=== PATIENT | female | born 1935 | race Two or more races ===

== ENCOUNTER 2018-07-11 11:45 | Emergency (ER) | payer MEDICARE, MEDICAID ==
[~2018-07-11] VITALS: Ht 154.9 cm; Wt 43.1 kg
--- NOTE | 2018-07-11 11:50 | NUR ---
PT FOUND ON THE FLOOR WITH HEMATOMA ON BACK OF THE HEAD. PATIENT A/OX3, NO DISTRESS NOTED. REFUSED TREATMENT AT FIRST, BUT AFTER SOME ENCOURAGEMENT PATIENT DECIDED TO AGREE WITH MEDICAL TREATMENT.
[2018-07-11 12:30] LABS: BASOPHILS % (AUTO) 0.4 % (0.0-2.0); EOSINOPHILS % (AUTO) 0.2 % (0.0-6.0); HEMATOCRIT 43 % (33-45); HEMOGLOBIN 14.3 g/dL (11.5-14.8); LYMPHOCYTES # (AUTO) 1.5 /CMM (0.8-4.8); LYMPHOCYTES % (AUTO) 17.6 % (20.0-44.0); MEAN CORPUSCULAR HGB CONC 34 g/dl (31.0-36.0); MEAN CORPUSCULAR VOLUME 91 fL (82-100); MONOCYTES # (AUTO) 0.5 /CMM (0.1-1.30); MONOCYTES % (AUTO) 6.4 % (2.0-12.0); NEUTROPHILS # (AUTO) 6.4 /CMM (1.8-8.9); NEUTROPHILS % (AUTO) 75.4 % (43.0-81.0); PLATELET COUNT (AUTO) 246 /CMM (150-450); RED BLOOD CELL COUNT(AUTO) 4.66 MIL/uL (4.0-5.2); WHITE BLOOD COUNT (AUTO) 8.4 K/uL (4.3-11.0)
[2018-07-11] MEDS ORDERED: IV NS 0.9% 1,000 ML BAG IV ONE (12:30)
[2018-07-11 12:42] LABS: CALCIUM, SERUM 8.4 mg/dL (8.5-10.1); CARBON DIOXIDE 26 mmol/L (21-32); CHLORIDE 100 mmol/L (98-107); CREATININE 0.9 mg/dL (0.6-1.3); GLUCOSE 108 mg/dL (74-106); POTASSIUM 3.7 mmol/L (3.5-5.1); SODIUM SERUM 134 mmol/L (136-145); UREA NITROGEN, BLOOD 21 mg/dL (7-18)
[2018-07-11 12:48] LABS: ALANINE AMINOTRANSFERASE 17 U/L (12-78); ALBUMIN 3.1 g/dL (3.4-5.0); ALKALINE PHOSPHATASE 108 U/L (46-116); ASPARTATE AMINOTRANSFERASE 20 U/L (15-37); BILIRUBIN,DIRECT 0.2 mg/dL (0.0-0.2); BILIRUBIN,TOTAL 0.9 mg/dL (0.2-1.0); TOTAL PROTEIN, SERUM 6.4 g/dL (6.4-8.2)
--- NOTE | 2018-07-11 14:32 | NUR ---
PIV removed, Patient discharged to home in stable condition, accompanied by daughter. Written and verbal after care instructions given. Patient verbalizes understanding of instruction.
[2018-07-11 14:33] VITALS: BP 162/94
== END 2018-07-11 14:35 | disposition home or self-care (01) ==
LOC: ER 11:47
DX: S20.212A Contusion of left front wall of thorax, initial encounter (principal); S00.03XA Contusion of scalp, initial encounter; S09.8XXA Other specified injuries of head, initial encounter; R55 Syncope and collapse; E86.0 Dehydration; W18.39XA Other fall on same level, initial encounter; Y93.89 Activity, other specified; Y92.89 Other specified places as the place of occurrence of the external cause; Y99.8 Other external cause status
CPT/HCPCS: 36415; 70450; 71100; 72125; 80048; 80076; 82962; 84484; 85025; 93005; 96360; 99284; J7030

== ENCOUNTER 2023-03-08 19:32 | Emergency (ER) | payer MEDICAID, MEDICARE, OTHER ==
[~2023-03-08] VITALS: Ht 154.9 cm; Wt 39.9 kg
[2023-03-08] MEDS ORDERED: HYDROCODONE/APAP 5/325MG TABLET ONE (20:17)
[2023-03-08] MEDS ORDERED: IBUPROFEN 600 MG TABLET ONE (20:22)
[2023-03-08] MEDS ORDERED: IBUPROFEN 600 MG TABLET PO ONE (20:30)
[2023-03-08] MEDS ORDERED: HYDROCODONE/APAP 5/325MG TABLET PO ONE (20:30)
[2023-03-08 20:56] LABS: BASOPHILS % (AUTO) 0.1 % (0.0-2.0); EOSINOPHILS % (AUTO) 0.2 % (0.0-6.0); HEMATOCRIT 37 % (33-45); HEMOGLOBIN 12.1 g/dL (11.5-14.8); LYMPHOCYTES % (AUTO) 9.2 % (20.0-44.0); MEAN CORPUSCULAR HEMOGLOBIN 30 PG (26.0-33.0); MEAN CORPUSCULAR HGB CONC 33 g/dl (31.0-36.0); MEAN CORPUSCULAR VOLUME 92 fL (82-100); MONOCYTES # (AUTO) 0.7 K/uL (0.1-1.30); MONOCYTES % (AUTO) 6.9 % (2.0-12.0); NEUTROPHILS # (AUTO) 8.8 K/uL (1.8-8.9); NEUTROPHILS % (AUTO) 83.6 % (43.0-81.0); PLATELET COUNT (AUTO) 257 K/uL (150-450); RED BLOOD CELL COUNT(AUTO) 4.04 MIL/uL (4.0-5.2); RED CELL DISTRIBUTION WIDTH 13.6 % (11.5-15.0); WHITE BLOOD COUNT (AUTO) 10.5 K/uL (4.3-11.0)
[2023-03-08 21:03] LABS: CALCIUM, SERUM 8.5 mg/dL (8.5-10.1); CREATININE 0.9 mg/dL (0.6-1.3); POTASSIUM 4.4 mmol/L (3.5-5.1)
[2023-03-08 21:10] LABS: INR 0.98 (0.91-1.10); PARTIAL THROMBOPLASTIN TIME 26.8 SEC (24.3-34.3); PROTHROMBIN TIME 10.4 SECS (9.2-11.1)
[2023-03-08] MEDS ORDERED: ENALAPRILAT DIHYD. (2.5MG/2ML) 1.25 MG/ML VIAL IV ONE ×2 (21:30→21:46)
[2023-03-08 23:52] VITALS: BP 154/77; TEMP 98.4; O2SAT 98
== END 2023-03-08 23:53 | disposition short-term general hospital (02) ==
LOC: ER 20:05
DX: S72.142A Displaced intertrochanteric fracture of left femur, initial encounter for closed fracture (principal); R94.31 Abnormal electrocardiogram [ECG] [EKG]; Z20.822 Contact with and (suspected) exposure to COVID-19; W01.0XXA Fall on same level from slipping, tripping and stumbling without subsequent striking against object, initial encounter; Y93.89 Activity, other specified; Y92.89 Other specified places as the place of occurrence of the external cause; Y99.8 Other external cause status
CPT/HCPCS: 99285; 96374; 71045; 87426; 93005; 73552; 73503; 85025; 80048; 36415; 85730; J3490; 73502